=== PATIENT | male | born 1980 | race Caucasian/White ===

== ENCOUNTER 2018-01-06 11:04 | Emergency (ER) | payer MEDICAID ==
[2018-01-06] MEDS ORDERED: Tetracaine 0.5% Ophth Soln 15 mL Soln EACH EYE ONE (11:22)
[2018-01-06] MEDS ORDERED: TETRACAINE HCL 0.5% OPHTH SOLN 4ML BOTTLE ONE (11:31)
[2018-01-06] MEDS ORDERED: Gentamicin Ophth 0.3% Oint 3.5gm Tube ONE (11:39)
--- NOTE | 2018-01-06 12:33 | ED Physician Chart ---
ED Chief Complaint/HPI - Patient Information Date Seen:: 01/06/18 Time Seen:: 11:26 Chief Complaint:: LEFT EYE PAIN History of Present Illness:: THIS IS A 37 YO MALE WHO STATES THAT HE GOT SOMETHING IN HIS LEFT EYE AND DEVELOPED PHOTOPHOBIA. HE STATES THAT HE WAS SEEN AT [facility] YESTERDAY WITH SOME TREATMENT. HE IS HERE BECAUSE THE PAIN PERSIST. HE DENIES LOST OF VISUAL ACUITY. Allergies:: Allergies Allergy/AdvReac Type Severity Reaction Status Date / Time No Known Allergies Allergy Verified 01/06/18 11:15 Vitals:: Vital Signs - 8 hr 01/06/18 01/06/18 11:15 11:50 Temp 98.2 F 98.2 F HR 104 75 RR 18 15 BP 130/78 125/75 O2 Sat % 95 Historian:: Patient Review:: Nurse's Note Reviewed ED Review of Systems - Review of Systems General/Constitutional: No fever, No chills, No weight loss, No weakness, No diaphoresis, No edema, No loss of appetite Skin: No skin lesions, No rash, No bruising Head: No headache, No light-headedness Eyes: No loss of vision, Pain, No diplopia ENT: No earache, No nasal drainage, No sore throat, No tinnitus Neck: No neck pain, No swelling, No thyromegaly, No stiffness, No mass noted Cardio Vascular: No chest pain, No palpitations, No PND, No orthopnea, No edema Pulmonary: No SOB, No cough, No sputum, No wheezing GI: No nausea, No vomiting, No diarrhea, No pain, No melena, No hematochezia, No constipation, No hematemesis G/U: No dysuria, No frequency, No hematuria Musculoskeletal: No bone or joint pain, No back pain, No muscle pain Endocrine: No polyuria, No polydipsia Psychiatric: No prior psych history, No depression, No anxiety, No suicidal ideation Hematopoietic: No bruising, No lymphadenopathy Allergic/Immuno: No urticaria, No angioedema Neurological: No syncope, No focal symptoms, No weakness, No paresthesia, No headache, No seizure, No dizziness, No confusion, No vertigo ED Past Medical History - Past Medical History Obtainable: Yes Past Medical History: HTN, Asthma/COPD, Other (BIPOLAR) Family History: None Social History: Non Smoker, No Alcohol, No Drug Use Surgical History: None Psychiatricy History: Schizophrenia, Bipolar Medication: Reviewed Family Medical History - Family Member Mother History Unknown: Yes Other Medical History: Adopted ED Physical Exam - Physical Examination General/Constitutional: Awake, Well-developed, well-nourished, Alert, No distress, GCS 15, Non-toxic appearing, Ambulatory Head: Atraumatic Eyes: Lids, conjuctiva normal (LEFT CONJUNCTIVA IS RED AND SWOLLEN AND NO FB WAS SEEN. ACUITY WAS NORMAL.), PERRL, EOMI Skin: Nl inspection, No rash, No skin lesions, No ecchymosis, Well hydrated, No lymphadenopathy ENMT: External ears, nose nl, Nasal exam nl, Lips, teeth, gums nl Neck: Nontender, Full ROM w/o pain, No JVD, No nuchal rigidity, No bruit, No mass, No stridor Respiratory: Nl effort/Exclusion, Clear to Auscultation, No Wheeze/Rhonchi/Rales Cardio Vascular: RRR, No murmur, gallop, rubs, NL S1 S2 GI: No tenderness/rebounding/guarding, No organomegaly, No hernia, Normal BS's, Nondistended, No mass/bruits, No McBurney tenderness : No CVA tenderness Extremities: No tenderness or effusion, Full ROM, normal strength in all extremities, No edema, Normal digits & nails Neuro/Psych: Alert/oriented, DTR's symmetric, Normal sensory exam, Normal motor strength, Judgement/insight normal, Mood normal, Normal gait, No focal deficits Misc: Normal back, No paraspinal tenderness ED Assessment - Assessment General Assessment: CORNEAL ABRASION ED Septic Shock - . Is Septic Shock (SBP<90, OR Lactate>4 mmol\L) present?: No - <6hrs of presentation: Vital Signs: Vital Signs - 8 hr 01/06/18 01/06/18 11:15 11:50 Temp 98.2 F 98.2 F HR 104 75 RR 18 15 BP 130/78 125/75 O2 Sat % 95 ED Reassessment (Disposition) - Reassessment Reassessment Condition:: Improved - Diagnosis Diagnosis:: LEFT CORNEAL ABRASION - Aftercare/Follow up Instructions Aftercare/Follow-Up Instructions:: Counseled pt regarding lab results/diagnosis & need follow up, Refer to Discharge Instructions, Counseled pt & family regarding lab results/diagnosis & need follow up Notes:: TO SEE AN EYE DOCTOR IN THE AM. Medication Prescribed:: GARAMYCIN OINTMENT - Patient Disposition Discharge/Transfer:: Home Condition at Disposition:: Improved
[2018-01-06] MEDS ORDERED: Gentamicin Ophth 0.3% Oint 3.5gm Tube LEFT EYE SCH (14:00)
== END 2018-01-06 12:59 | disposition home or self-care (01) ==
LOC: ER 11:04
DX: S05.02XA Injury of conjunctiva and corneal abrasion without foreign body, left eye, initial encounter (principal); I10 Essential (primary) hypertension; J44.9 Chronic obstructive pulmonary disease, unspecified; F20.9 Schizophrenia, unspecified; X58.XXXA Exposure to other specified factors, initial encounter; Y93.89 Activity, other specified; Y92.89 Other specified places as the place of occurrence of the external cause; Y99.8 Other external cause status
CPT/HCPCS: Z7502

== ENCOUNTER 2018-02-09 23:57 | Inpatient (IN) | payer MEDICAID ==
--- NOTE | 2018-02-10 01:02 | ED Physician Chart ---
ED Chief Complaint/HPI - Patient Information Date Seen:: 02/10/18 Time Seen:: 00:56 Chief Complaint:: bilateral hand lesions History of Present Illness:: 37 yr old male homeless shoots up meth with bilateral dorsal hand lesions with reddness and swelling Allergies:: Allergies Allergy/AdvReac Type Severity Reaction Status Date / Time No Known Allergies Allergy Verified 02/10/18 00:19 Vitals:: Vital Signs - 8 hr 02/10/18 00:19 Temp 98.4 F HR 100 RR 18 BP 148/94 O2 Sat % 100 ED Review of Systems - Review of Systems General/Constitutional: Chills Skin: Skin lesions (reddness swelling on back of the hands) Head: Headache Eyes: No loss of vision ENT: No earache Neck: No neck pain Cardio Vascular: No chest pain GI: No vomiting, No diarrhea G/U: No dysuria Endocrine: No polyuria Psychiatric: No depression, No anxiety Hematopoietic: No bruising Neurological: No syncope, No focal symptoms ED Past Medical History - Past Medical History Past Medical History: No significant medical hx, Other (drug abuse meth and shooting up meth) Family Medical History - Family Member Mother History Unknown: Yes ED Physical Exam - Physical Examination General/Constitutional: Well-developed, well-nourished Head: Atraumatic Eyes: Lids, conjuctiva normal Other Skin comments:: skin lesions on back of the hands more symmerical Neck: Nontender Respiratory: Nl effort/Exclusion Cardio Vascular: No murmur, gallop, rubs GI: No tenderness/rebounding/guarding Extremities: Full ROM Neuro/Psych: Alert/oriented Misc: Normal back ED Septic Shock - . Is Septic Shock (SBP<90, OR Lactate>4 mmol\L) present?: No - <6hrs of presentation: Vital Signs: Vital Signs - 8 hr 02/10/18 00:19 Temp 98.4 F HR 100 RR 18 BP 148/94 O2 Sat % 100 ED Reassessment (Disposition) - Reassessment Reassessment Condition:: Unchanged - Diagnosis Diagnosis:: skin lesions on back of the hands symmetrical and ivda - Patient Disposition Discharge/Transfer:: Acute Care w/in this hosp Admitted to:: Med/Surg Condition at Disposition:: Stable
[2018-02-10 01:24] LABS: % EOSINOPHILS 2.4 % (0.0-5.0); % LYMPHOCYTES 20.3 % (20.0-50.0); % MONOCYTES 7.9 % (2.0-10.0); % NEUTROPHILS 69.4 % (40.0-80.0); EOSINOPHILE ABSOLUTE 0.3 Th/cmm (0.1-0.4); HEMATOCRIT 40.4 % (41.0-60); HEMOGLOBIN 13.7 gm/dL (12-16); LYMPHOCYTE ABSOLUTE 2.2 Th/cmm (1.5-3.0); MEAN CELL VOLUME 89.5 fl (80-99); MEAN CORPUSCULAR HEMOGLOBIN 30.3 pg (26.0-30.0); MEAN CORPUSCULAR HGB CONC 33.8 pg (28.0-36.0); MEAN PLATELET VOLUME 7.8 fl; MONOCYTE ABSOLUTE 0.8 Th/cmm (0.3-1.0); NEUTROPHILE ABSOLUTE 7.3 Th/cmm (1.8-8.0); PLATELET COUNT 311 Th/cmm (150-400); RED BLOOD COUNT 4.51 Mil/cmm (4.30-5.70); RED CELL DISTRIBUTION WIDTH 12.4 % (11.5-20.0); WHITE BLOOD COUNT 10.6 Th/cmm (4.8-10.8)
[2018-02-10] MEDS ORDERED: cefTRIAXone 2 GM in Sodium Chloride 0.9% 100 ML IV SCH (01:30)
[2018-02-10 01:34] LABS: ALB/GLOB RATIO 1.3 (1.0-1.8); ALBUMIN 4.2 gm/dL (4.2-5.5); ALKALINE PHOSPHATASE 105 U/L (34-104); ANION GAP 13.5 (7.0-16.0); BILIRUBIN,TOTAL 0.3 mg/dL (0.3-1.0); BUN - UREA NITROGEN 15 mg/dL (7-25); CALCIUM SERUM 9.8 mg/dL (8.6-10.3); CHLORIDE 99 mEq/L (98-107); CREATININE - SERUM 0.9 mg/dL (0.7-1.3); GFR AFRICAN-AMERICAN > 60.0 ml/min (>90); GFR NON AFRICAN-AMERICAN > 60.0 ml/min; GLUCOSE 90 mg/dL (70-105); POTASSIUM SERUM 3.5 mEq/L (3.5-5.1); SGOT 13 U/L (13-39); SGPT/ALT 10 U/L (7-52); SODIUM SERUM 137 mEq/L (136-145); TOTAL PROTEIN,SERUM 7.5 gm/dL (6.0-8.3)
[2018-02-10 07:21] LABS: URINE SOURCE CLEAN C
[2018-02-10 07:25] LABS: URINE BILIRUBIN NEGATIVE (NEGATIVE); URINE BLOOD MODERATE (NEGATIVE); URINE GLUCOSE (UA) NEGATIVE (NEGATIVE); URINE KETONE NEGATIVE (NEGATIVE); URINE LEUKOCYTE ESTERASE NEGATIVE (NEGATIVE); URINE MICROSCOPIC INDICATED? YES; URINE NITRATE NEGATIVE (NEGATIVE); URINE PROTEIN NEGATIVE (NEGATIVE); URINE UROBILINOGEN 0.2 E.U./dL (0.2 - 1.0)
[2018-02-10 07:29] LABS: URINE CLARITY CLEAR (CLEAR); URINE COLOR PALE YELLOW
[2018-02-10 07:36] LABS: URINE BACTERIA FEW /hpf (NONE SEEN); URINE EPITHELIAL CELLS RARE /lpf (FEW); URINE RBC 25-50 /hpf (0-5); URINE WBC 0-2 /hpf (0-5)
[2018-02-10] MEDS ORDERED: Vancomycin HCl 1.5 GM in Sodium Chloride 0.9% 500 ML IV ONE (11:00)
[2018-02-10] MEDS: cefTRIAXone 1 GM in Sodium Chloride 0.9% 100 ML IV SCH (13:44)
--- NOTE | 2018-02-10 15:43 | History & Physical ---
ADMIT DATE: 02/10/2018 CHIEF COMPLAINT: Bilateral hand lesions, swelling, and redness. HISTORY OF PRESENT ILLNESS: This is a 37-year-old male who is homeless and who is currently using IV drugs (meth) presented to the ER yesterday with a 3-day history of worsening dorsal left hand lesions with the left hand having swelling and being more painful. The patient apparently tried to amy at himself and got some bloody like material. Given the fact that he had no improvement and had an episode of fevers, he decided to come into the ER. On further questioning, he also states that he has had some left abdominal pain for the last few days as well as the left arm pain and just today, he reported blood in his urine. He denies any similar previous episodes. The patient reports that he does not use the IV drugs at the site of the infection and does not share needles. PAST MEDICAL HISTORY: No major medical history. PAST SURGICAL HISTORY: Tonsillectomy, many years ago. SOCIAL HISTORY: He admits to previous ETOH, but he has not drunk in years. He does smoke about a pack a week and currently is using meth via IV. FAMILY HISTORY: Noncontributory to this admission. ALLERGIES: NKDA. OUTPATIENT MEDICATIONS: None. REVIEW OF SYSTEMS: CONSTITUTIONAL: No recent weight loss. He does report 1 episode of fevers couple days ago. HEAD AND NECK: Denies any upper respiratory infection symptomatology. No neck rigidity. CARDIAC: No chest pain or palpitations. PULMONARY: Denies any cough or phlegm production. GASTROINTESTINAL: Currently denies any GI symptomatology. Besides the left-sided abdominal pain, he denies any other symptomatology. GENITOURINARY: He denies any dysuria, but reported one episode of hematuria earlier today. MUSCULOSKELETAL: Bilateral dorsal hand pain and left shoulder and hand pain. NEUROLOGIC: No changes in vision, no headaches or blurry vision. PHYSICAL EXAMINATION: VITAL SIGNS: Temperature 97.7, afebrile, pulse 78, respirations 18, BP 136/83. GENERAL: Well-developed, mildly disheveled male, not in acute distress, speaking in full sentences. Awake, alert and oriented x 3. HEAD AND NECK: Normocephalic, atraumatic. Pupils reactive to light. Extraocular movements are intact. Oropharynx moist and clear. CARDIOVASCULAR: Regular rate and rhythm without any murmurs. LUNGS: Clear to auscultation bilaterally. ABDOMEN: Soft, supple. There is mild tenderness to palpation on the left lower quadrant and left upper quadrant, but no organomegaly noted. There is normoactive bowel sounds. EXTREMITIES: On lower extremity, there is no pedal edema. On his upper extremities, on the dorsal side, there is a large area of induration around the third knuckle area and on the right hand, there is a small ulcer formation with no induration. LABORATORY DATA: CBC was essentially within normal limits. ESR 33. Chem-20 was essentially within normal limits except for alk phos slightly elevated at 105. CRP 2.4. UA shows moderate blood, 25-50 rbc's. DIAGNOSTICS: None. IMPRESSION AND PLAN: 1. Bilateral hand cellulitis with possible abscess on the left hand and an ulcer formation on the right hand. 2. History of IVDA, rule out sepsis. 3. Elevated CRP and ESR, likely secondary to #1. 4. Left-sided abdominal pain. 5. Nicotine dependence. PLAN: The patient has been admitted to the medical/surgical floor where he has been placed on Rocephin and vancomycin as well as Toradol for pain. He has been pancultured and given his abdominal pain, I will ask for an abdominal ultrasound. A surgical consult will be asked for as well for possible I and D of the left abscess. JOB# [id number]
[2018-02-10 15:48] LABS: INR 0.93 (0.5-1.4); PROTHROMBIN TIME (TEST) 9.7 SECONDS (9.5-11.5)
[2018-02-10] MEDS ORDERED: Vancomycin HCl 1.5 GM in Sodium Chloride 0.9% 500 ML IV SCH (18:00)
[2018-02-11] MEDS: Vancomycin HCl 1.5 GM in Sodium Chloride 0.9% 500 ML IV SCH ×3 (00:10→17:23)
[2018-02-11 05:53] LABS: % BASOPHILS 1.2 % (0.0-2.0); % EOSINOPHILS 3.5 % (0.0-5.0); % MONOCYTES 9.2 % (2.0-10.0); % NEUTROPHILS 57.1 % (40.0-80.0); BASOPHILE ABSOLUTE 0.1 Th/cumm (0-0.2); EOSINOPHILE ABSOLUTE 0.3 Th/cmm (0.1-0.4); HEMATOCRIT 41.5 % (41.0-60); HEMOGLOBIN 13.4 gm/dL (12-16); LYMPHOCYTE ABSOLUTE 2.2 Th/cmm (1.5-3.0); MEAN CELL VOLUME 90.1 fl (80-99); MEAN CORPUSCULAR HGB CONC 32.2 pg (28.0-36.0); MONOCYTE ABSOLUTE 0.7 Th/cmm (0.3-1.0); NEUTROPHILE ABSOLUTE 4.2 Th/cmm (1.8-8.0); PLATELET COUNT 299 Th/cmm (150-400); RED CELL DISTRIBUTION WIDTH 12.5 % (11.5-20.0); WHITE BLOOD COUNT 7.5 Th/cmm (4.8-10.8)
--- NOTE | 2018-02-11 09:40 | Diagnostic Imaging Report ---
Exam: Ultrasound summation abdomen. HISTORY: Left-sided pain. Findings: Real-time ultrasound examination of the abdomen performed multiple planes. The study demonstrates normal just liver parenchyma Gallbladder free of calculi. There is evidence of small polyp versus inspissated bile. Common bile duct measures 4 mm. Pancreas poorly seen. There is no evidence of obstructive uropathy or nephrolithiasis. The spleen is intact. No free fluid is seen. IMPRESSION: Question of a small gallbladder polyp.
[2018-02-11] MEDS: cefTRIAXone 1 GM in Sodium Chloride 0.9% 100 ML IV SCH (11:58)
--- NOTE | 2018-02-11 17:07 | Operative Report ---
DATE OF SURGERY: 02/11/2018 PREOPERATIVE DIAGNOSIS: Abscess left hand. POSTOPERATIVE DIAGNOSIS: Abscess left hand. OPERATION: 1. Incision and drainage of abscess. 2. Culture and sensitivity. Informed consent discussed with the patient regarding need for I and D of abscess in the dorsum of the left hand. DESCRIPTION OF PROCEDURE: The dorsum of the hand was prepped with Betadine and draped. 1% lidocaine was used into the area. An incision was then made with a knife and thick purulent material was cultured. The abscess cavity was squeezed to allow for drainage of the prone material. Sterile dressing was placed over this. The patient is on IV antibiotics now and will continue to need oral antibiotics post discharge. [facility]# [id number]
--- NOTE | 2018-02-11 18:16 | Consultation ---
DATE OF CONSULTATION: 02/11/2018 SURGICAL CONSULTATION REFERRING PHYSICIAN: Dr. Noe Robles. REASON FOR CONSULTATION: Abscess, left dorsum of the hand. Thank you for referring this patient to me. HISTORY OF PRESENT ILLNESS: This is a 37-year-old homeless male who came in because a 5-day history of swelling and increasing pain with abscess in the left hand dorsal aspect. He has similar abscess in the right hand, but this has drained spontaneously. PAST MEDICAL HISTORY: Apparently, has history of methamphetamine abuse, but he denies this recently. Otherwise, in addition to that, he also smokes cigarettes. LABORATORY STUDIES: Show WBC to be normal. ESR is elevated to 33. There is some blood in the urine. DIAGNOSTIC DATA: The ultrasound of the abdomen showed question of a small gallbladder polyp. No stones. Otherwise, liver function tests are normal. He claims he has some problem with indigestion at times. PHYSICAL EXAMINATION: Now, there is no tenderness in right upper quadrant, so this is an incidental finding of a polyp. There is an abscess in the dorsum of the left hand, which is markedly distended and requires I and D. The abscess in the right hand has drained. Medication now that he takes include vancomycin. He wants to go home and will need an oral antibiotic and local wound care. [facility]# [id number]
[2018-02-11] MEDS ORDERED: Morphine Sulfate 2 mg/mL 1mL Syr IV PRN (21:23)
[2018-02-12] MEDS: Vancomycin HCl 1.5 GM in Sodium Chloride 0.9% 500 ML IV SCH (00:26)
[2018-02-12 05:33] LABS: % BASOPHILS 0.3 % (0.0-2.0); % EOSINOPHILS 3.3 % (0.0-5.0); % LYMPHOCYTES 23.3 % (20.0-50.0); % MONOCYTES 8.2 % (2.0-10.0); % NEUTROPHILS 64.9 % (40.0-80.0); EOSINOPHILE ABSOLUTE 0.3 Th/cmm (0.1-0.4); HEMATOCRIT 38.6 % (41.0-60); MEAN CELL VOLUME 88.9 fl (80-99); MEAN CORPUSCULAR HGB CONC 33.7 pg (28.0-36.0); MEAN PLATELET VOLUME 8.5 fl; MONOCYTE ABSOLUTE 0.7 Th/cmm (0.3-1.0); NEUTROPHILE ABSOLUTE 5.6 Th/cmm (1.8-8.0); PLATELET COUNT 260 Th/cmm (150-400); RED BLOOD COUNT 4.34 Mil/cmm (4.30-5.70); RED CELL DISTRIBUTION WIDTH 12.5 % (11.5-20.0); WHITE BLOOD COUNT 8.6 Th/cmm (4.8-10.8)
--- NOTE | 2018-02-12 17:28 | Discharge Summary ---
DATE OF DISCHARGE: 02/12/2018 ADMITTING DIAGNOSES: 1. Bilateral left hand cellulitis. 2. Left hand abscess formation on the dorsum. 3. Nonspecific abdominal left-sided pain and possible hematuria. SECONDARY DIAGNOSES: 1. History of IVDA. Elevated CRP and ESR. 2. History of multiple substance abuse. 3. Nicotine dependence. DISCHARGE DIAGNOSES: 1. Bilateral hand cellulitis -- clinically improved. 2. Left hand abscess formation -- status post incision and drainage. 3. Nonspecific abdominal pain -- improved. 4. Hematuria -- resolved. CONSULTANTS: Dr. Harrington, General Surgery. MAJOR PROCEDURES: He underwent an incision and drainage on 02/11/2018 with no complications. The patient also had abdominal ultrasound on the showing a questionable small gallbladder polyp. BRIEF HOSPITAL COURSE: A 37-year-old gentleman who is homeless and is currently using IV drugs (Meth) presented to the ED with a 3-day history of worsening dorsal left hand lesions or bilateral left hand lesions with growth on the left hand dorsum, which is painful. The patient apparently tried to amy at himself, just getting a small amount of bloody like material. He had an episode of fevers prior to coming into the ED and was admitted for IV antibiotics. He was placed on IV Rocephin, IV vancomycin and eventually underwent the above-mentioned procedure. He also has some nonspecific complaints including left-sided abdominal pain and arm pain as well as possible hematuria, which he could not be 100% sure, but nevertheless he was cultured and underwent abdominal ultrasound showing no major findings. After the I and D, his symptoms improved and since admission, his vital signs have remained stable. DISCHARGE MEDICATIONS: Clindamycin 300 mg t.i.d. x 10 days, ibuprofen 800 mg t.i.d. with meals x 10 days. DISPOSITION: The patient was sent home to self-care. The patient was seen by a licensed clinical social worker to instruct him on finding place to live and have the proper medical followup that he needs. JOB# [id number]
== END 2018-02-12 09:39 | disposition home or self-care (01) | DRG 383 ==
LOC: ER 23:57 → MSI 02-10 09:58
PROVIDERS: ADMIT Internal Medicine; ATTEND Internal Medicine
PROC: 0H9GXZZ Drainage of Left Hand Skin, External Approach (ICD-10-PCS; principal; 2018-02-11)
DX: L02.512 Cutaneous abscess of left hand (principal); F15.10 Other stimulant abuse, uncomplicated; L02.511 Cutaneous abscess of right hand; L03.114 Cellulitis of left upper limb; F17.210 Nicotine dependence, cigarettes, uncomplicated; R10.9 Unspecified abdominal pain; L03.113 Cellulitis of right upper limb; R31.9 Hematuria, unspecified; K82.4 Cholesterolosis of gallbladder; Z59.0 Homelessness
CPT/HCPCS: 36415-UA; 76700-TC; 80053-TC; 80202-TC; 81001-TC; 85025-TC; 85610-TC; 85652-TC; 86141-TC; 87070-90; 87075-90; 87086-90; 87205-90; 96375; J0696; J1885; J2001; J2270; J3370; J7040; Z7610

== ENCOUNTER 2018-08-06 23:13 | Emergency (ER) | payer MEDICAID ==
--- NOTE | 2018-08-06 23:36 | ED Physician Chart ---
ED Chief Complaint/HPI - Patient Information Date Seen:: 08/06/18 Time Seen:: 23:25 Chief Complaint:: Abdominal pain History of Present Illness:: Brought in by ambulance because of abdominal pain since about 3 pm today. Pain is characterized as constant, crampy migratory and diffuse. Pain can be worsened with bodily movements. No fever. Pt had transient nausea. No vomiting. Last BM was about 2 days ago that was normal in color/consistency. No hematochezia or melena. No gross hematuria, dysuria, urinary frequency or urgency. Pt is a poor history provider. He does not give consistent history. Allergies:: Allergies Allergy/AdvReac Type Severity Reaction Status Date / Time No Known Allergies Allergy Verified 02/10/18 00:19 Vitals:: see Nurse Note. Historian:: Patient Family MD/PCP:: Dr. Mott. LMP:: N/A Review:: Nurse's Note Reviewed ED Review of Systems - Review of Systems General/Constitutional: No fever, No chills, No weight loss, No weakness, No loss of appetite Skin: No rash, No bruising Head: No headache, No light-headedness Eyes: No loss of vision, No pain ENT: No earache, No nasal drainage, No sore throat Neck: No neck pain, No stiffness Cardio Vascular: No chest pain, No palpitations Pulmonary: No SOB, No cough, No wheezing GI: Nausea, No vomiting, No diarrhea, Pain, No melena, No hematochezia, No hematemesis G/U: No dysuria, No frequency, No hematuria Musculoskeletal: No bone or joint pain Endocrine: No polyuria, No polydipsia Psychiatric: Prior psych history, No depression, No suicidal ideation, No homicidal ideation Hematopoietic: No bruising, No lymphadenopathy Neurological: No syncope, No focal symptoms, Weakness, No paresthesia, No headache, No dizziness, No confusion ED Past Medical History - Past Medical History Past Medical History: No significant medical hx Family History: Other (Pt is adopted and does not know his FHx.) Social History: Smoker (Pt has been informed about health risks associated with chronic tobacco use and has been advised to stop. Pt has been encouraged to enroll in a smoking cessation program. Pt acknowledges understanding.), No Alcohol, Illicit Drug Use (with metamphetamine. Pt has been informed about health risks associated with illicit drug use and has been advised to stop. Pt has been encouraged to enroll in a drug detox. program. Pt acknowledges understanding.), Single Employment:: works in film production. Surgical History: other (tonsillectomy in 2017.) Psychiatricy History: Bipolar Medication: Reviewed Family Medical History - Family Member Mother History Unknown: Yes Ethnicity: Non- Living Status: Still Living Hx Family Cancer: No Hx Family Coronary Artery Disease: No Hx Family Congestive Heart Failure: No Hx Family Hypertension: No Hx Family Stroke: No Hx Family Diabetes: No Hx Family Seizures: No Hx Family Dementia: No Hx Family AIDS: No Hx Family HIV: No Hx Family COPD: No Hx Family Hepatitis: No Hx Family Psychiatric Problems: No Hx Family Tuberculosis: No ED Physical Exam - Physical Examination General/Constitutional: Awake, Well-developed, well-nourished (male), Alert, No distress, Non-toxic appearing Other Gen/Cons comments:: Breathes comfortably, speaks clearly, and interacts appropriately. Head: Atraumatic Eyes: Lids, conjuctiva normal, PERRL, EOMI Other Eyes comments:: anicteric sclera. Skin: Nl inspection, Well hydrated, No lymphadenopathy ENMT: External ears, nose nl, Nasal exam nl, Oropharynx nl Neck: Nontender, Full ROM w/o pain, No JVD, No nuchal rigidity, No mass Respiratory: Nl effort/Exclusion, Clear to Auscultation, No Wheeze/Rhonchi/Rales Cardio Vascular: RRR, No murmur, gallop, rubs GI: No organomegaly, No hernia, Normal BS's, Nondistended, No mass/bruits, No McBurney tenderness Other GI comments:: Soft. Vague diffuse pain with palpation. No R/G. Negative Gibson's, Fleming-Mart' s, and Erik's signs. : No CVA tenderness Extremities: No tenderness or effusion, Full ROM, normal strength in all extremities, No edema Neuro/Psych: Alert/oriented (orient ed x 3), No focal deficits Misc: Normal back, No paraspinal tenderness ED Labs/Radiology/EKG Results - Lab Results Results: Laboratory Results - last 24 hr 08/06/18 08/06/18 08/06/18 23:59 23:59 23:59 WBC 9.8 RBC 4.79 Hgb 14.2 Hct 42.6 MCV 88.9 MCH 29.7 MCHC Differential 33.4 RDW 13.1 Plt Count 217 MPV 7.9 Neutrophils % 81.8 H Lymphocytes % 9.4 L Monocytes % 5.9 Eosinophils % 2.8 Basophils % 0.1 PT 10.3 INR 0.99 PTT (Actin FS) 29.9 Sodium 134 L Potassium 3.6 Chloride 101 Carbon Dioxide 25.4 Anion Gap 11.2 BUN 12 Creatinine 1.0 Est GFR ( Amer) > 60.0 Est GFR (Non-Af Amer) > 60.0 BUN/Creatinine Ratio 12.0 Glucose 132 H Calcium 8.9 Total Bilirubin 0.4 AST 12 L ALT 9 Alkaline Phosphatase 78 Total Protein 6.4 Albumin 4.1 L Globulin 2.3 Albumin/Globulin Ratio 1.8 Amylase 38 Lipase 5 L Laboratory Last Values WBC 9.8 Th/cmm (4.8-10.8) 08/06/18 23:59 RBC 4.79 Mil/cmm (4.30-5.70) 08/06/18 23:59 Hgb 14.2 gm/dL (12-16) 08/06/18 23:59 Hct 42.6 % (41.0-60) 08/06/18 23:59 MCV 88.9 fl (80-99) 08/06/18 23:59 MCH 29.7 pg (26.0-30.0) 08/06/18 23:59 MCHC Differential 33.4 pg (28.0-36.0) 08/06/18 23:59 RDW 13.1 % (11.5-20.0) 08/06/18 23:59 Plt Count 217 Th/cmm (150-400) 08/06/18 23:59 MPV 7.9 fl 08/06/18 23:59 Neutrophils % 81.8 % (40.0-80.0) H 08/06/18 23:59 Lymphocytes % 9.4 % (20.0-50.0) L 08/06/18 23:59 Monocytes % 5.9 % (2.0-10.0) 08/06/18 23:59 Eosinophils % 2.8 % (0.0-5.0) 08/06/18 23:59 Basophils % 0.1 % (0.0-2.0) 08/06/18 23:59 PT 10.3 SECONDS (9.5-11.5) 08/06/18 23:59 INR 0.99 (0.5-1.4) 08/06/18 23:59 PTT (Actin FS) 29.9 SECONDS (26.0-38.0) 08/06/18 23:59 Sodium 134 mEq/L (136-145) L 08/06/18 23:59 Potassium 3.6 mEq/L (3.5-5.1) 08/06/18 23:59 Chloride 101 mEq/L (98-107) 08/06/18 23:59 Carbon Dioxide 25.4 mEq/L (21.0-31.0) 08/06/18 23:59 Anion Gap 11.2 (7.0-16.0) 08/06/18 23:59 BUN 12 mg/dL (7-25) 08/06/18 23:59 Creatinine 1.0 mg/dL (0.7-1.3) 08/06/18 23:59 Est GFR ( Amer) > 60.0 ml/min (>90) 08/06/18 23:59 Est GFR (Non-Af Amer) > 60.0 ml/min 08/06/18 23:59 BUN/Creatinine Ratio 12.0 08/06/18 23:59 Glucose 132 mg/dL (70-105) H 08/06/18 23:59 Calcium 8.9 mg/dL (8.6-10.3) 08/06/18 23:59 Total Bilirubin 0.4 mg/dL (0.3-1.0) 08/06/18 23:59 AST 12 U/L (13-39) L 08/06/18 23:59 ALT 9 U/L (7-52) 08/06/18 23:59 Alkaline Phosphatase 78 U/L (34-104) 08/06/18 23:59 Total Protein 6.4 gm/dL (6.0-8.3) 08/06/18 23:59 Albumin 4.1 gm/dL (4.2-5.5) L 08/06/18 23:59 Globulin 2.3 gm/dL 08/06/18 23:59 Albumin/Globulin Ratio 1.8 (1.0-1.8) 08/06/18 23:59 Amylase 38 U/L (29-103) 08/06/18 23:59 Lipase 5 U/L (11-82) L 08/06/18 23:59 Urine Source CLEAN C 08/07/18 03:11 Urine Color YELLOW 08/07/18 03:11 Urine Clarity CLEAR (CLEAR) 08/07/18 03:11 Urine pH 7.0 (4.6 - 8.0) 08/07/18 03:11 Ur Specific Reading 1.020 (1.005-1.030) 08/07/18 03:11 Urine Protein TRACE mg/dL (NEGATIVE) 08/07/18 03:11 Urine Glucose (UA) NEGATIVE mg/dL (NEGATIVE) 08/07/18 03:11 Urine Ketones NEGATIVE mg/dL (NEGATIVE) 08/07/18 03:11 Urine Blood NEGATIVE (NEGATIVE) 08/07/18 03:11 Urine Nitrate NEGATIVE (NEGATIVE) 08/07/18 03:11 Urine Bilirubin NEGATIVE (NEGATIVE) 08/07/18 03:11 Urine Urobilinogen 2.0 E.U./dL (0.2 - 1.0) 08/07/18 03:11 Ur Leukocyte Esterase NEGATIVE (NEGATIVE) 08/07/18 03:11 Urine RBC 0-2 /hpf (0-5) H 08/07/18 03:11 Urine WBC 0-2 /hpf (0-5) 08/07/18 03:11 Ur Epithelial Cells RARE /lpf (FEW) 08/07/18 03:11 Urine Bacteria FEW /hpf (NONE SEEN) 08/07/18 03:11 Urine Opiates Screen NEGATIVE (NEGATIVE) 08/07/18 03:11 Urine Methadone Screen NEGATIVE (NEGATIVE) 08/07/18 03:11 Ur Barbiturates Screen NEGATIVE (NEGATIVE) 08/07/18 03:11 Ur Tricyclics Screen NEGATIVE (NEGATIVE) 08/07/18 03:11 Ur Phencyclidine Scrn NEGATIVE (NEGATIVE) 08/07/18 03:11 Amphetamines Screen POSITIVE (NEGATIVE) H 08/07/18 03:11 U Methamphetamines Scrn POSITIVE (NEGATIVE) H 08/07/18 03:11 U Benzodiazepines Scrn NEGATIVE (NEGATIVE) 08/07/18 03:11 U Cocaine Metab Screen NEGATIVE (NEGATIVE) 08/07/18 03:11 U Cannabinoids Screen NEGATIVE (NEGATIVE) 08/07/18 03:11 - Radiology Results Results: CT of abdomen/pelvis: Multiple prominent small bowel loops, majority of which measure less than 2.5 cm in width. These contain air and fluid without wall thickening. Consider gastroenteritis and less likely developing small obstruction, but would correlate clinically to confirm. No appendicitis, colitis , diverticulitis, obstructive uropathy, free air or free fluid. Pancreas and gallbladder are unremarkable. No other acute disease. Official report per Dr. Paul Hitchcock, radiologist. ED Septic Shock - . Is Septic Shock (SBP<90, OR Lactate>4 mmol\\L) present?: No ED Reassessment (Disposition) - Reassessment Reassessment:: 0250 Pt has been repeatedly evaluated. Pt remains stable and overall feels better. CT report just became available. Available lab and CT findings have been reviewed with pt. Remaining lab results are still pending. 0612 Pt slept through the morning uneventfully.Pt tolerates oral fluid well without N/V/D. Pt currently denies any abdominal pain. Pt was able to get up from the bed on his own and ambulates without assistance without difficulty. Remaining lab findings have been reviewed with pt. Pt again has been advised to stop substance abuse. Pt has been advised to follow with his PCP and has been encouraged to enroll in a drug detox. program. 0630 Pt is alert and oriented x 3. Pt breathes comfortably and speaks clearly. Pt now states that he has severe low back pain that he would not be able to walk 7 miles to where he wants to be. I reexamine pt. Back: No definite tenderness to palpation. No erythema, gross deformity, swelling, ecchymosis, or open wound. No detectable motor/sensory/vascular deficit. In the presence of my nurse Divine, I offer pt additional pain control, X-ray, assistance in transportation, and social work evaluation, clothes, etc. Pt declines further pain control and X-ray. Pt becomes belligerent and hostile. Pt has made contradictory statements and claims that "nothing has been done" for him at this ER. Pt remains belligerent and increasingly hostile. Security is called. 0640 [employer] officers have been here as well and discuss with pt. 0715 Pt left with [employer] prior to my delivery of Aftercare Instructions. Reassessment Condition:: Improved - Diagnosis Diagnosis:: Abdominal pain related to early viral gastroenteritis. Resolved and stable. Mild hyperglycemia. Amphetamine abuse - Aftercare/Follow up Instructions Aftercare/Follow-Up Instructions:: Counseled pt regarding lab results/diagnosis & need follow up Medication Prescribed:: None - Patient Disposition Discharge/Transfer:: Pt left with [employer] officers. Time:: 07:15 Condition at Disposition:: Stable, Improved
[2018-08-07 00:19] LABS: % BASOPHILS 0.1 % (0.0-2.0); % EOSINOPHILS 2.8 % (0.0-5.0); % LYMPHOCYTES 9.4 % (20.0-50.0); % MONOCYTES 5.9 % (2.0-10.0); % NEUTROPHILS 81.8 % (40.0-80.0); EOSINOPHILE ABSOLUTE 0.3 Th/cmm (0.1-0.4); HEMATOCRIT 42.6 % (41.0-60); HEMOGLOBIN 14.2 gm/dL (12-16); LYMPHOCYTE ABSOLUTE 0.9 Th/cmm (1.5-3.0); MEAN CELL VOLUME 88.9 fl (80-99); MEAN CORPUSCULAR HEMOGLOBIN 29.7 pg (26.0-30.0); MEAN CORPUSCULAR HGB CONC 33.4 pg (28.0-36.0); MEAN PLATELET VOLUME 7.9 fl; MONOCYTE ABSOLUTE 0.6 Th/cmm (0.3-1.0); PLATELET COUNT 217 Th/cmm (150-400); RED BLOOD COUNT 4.79 Mil/cmm (4.30-5.70); RED CELL DISTRIBUTION WIDTH 13.1 % (11.5-20.0); WHITE BLOOD COUNT 9.8 Th/cmm (4.8-10.8)
[2018-08-07 00:28] LABS: INR 0.99 (0.5-1.4); PROTHROMBIN TIME (TEST) 10.3 SECONDS (9.5-11.5)
[2018-08-07 00:32] LABS: ALB/GLOB RATIO 1.8 (1.0-1.8); ALBUMIN 4.1 gm/dL (4.2-5.5); ALKALINE PHOSPHATASE 78 U/L (34-104); AMYLASE SERUM 38 U/L (29-103); ANION GAP 11.2 (7.0-16.0); BILIRUBIN,TOTAL 0.4 mg/dL (0.3-1.0); BUN - UREA NITROGEN 12 mg/dL (7-25); CALCIUM SERUM 8.9 mg/dL (8.6-10.3); CARBON DIOXIDE 25.4 mEq/L (21.0-31.0); CHLORIDE 101 mEq/L (98-107); GFR AFRICAN-AMERICAN > 60.0 ml/min (>90); GFR NON AFRICAN-AMERICAN > 60.0 ml/min; GLUCOSE 132 mg/dL (70-105); LIPASE 5 U/L (11-82); POTASSIUM SERUM 3.6 mEq/L (3.5-5.1); SGOT 12 U/L (13-39); SGPT/ALT 9 U/L (7-52); SODIUM SERUM 134 mEq/L (136-145); TOTAL PROTEIN,SERUM 6.4 gm/dL (6.0-8.3)
[2018-08-07] MEDS ORDERED: Sodium Chloride 0.9% 1,000 ML IV ONE (03:02)
[2018-08-07 03:19] LABS: URINE SOURCE CLEAN C
[2018-08-07 03:58] LABS: URINE BILIRUBIN NEGATIVE (NEGATIVE); URINE BLOOD NEGATIVE (NEGATIVE); URINE GLUCOSE (UA) NEGATIVE (NEGATIVE); URINE KETONE NEGATIVE (NEGATIVE); URINE LEUKOCYTE ESTERASE NEGATIVE (NEGATIVE); URINE MICROSCOPIC INDICATED? YES; URINE NITRATE NEGATIVE (NEGATIVE); URINE PROTEIN TRACE mg/dL (NEGATIVE)
[2018-08-07 04:08] LABS: URINE CLARITY CLEAR (CLEAR); URINE COLOR YELLOW
[2018-08-07 04:09] LABS: AMPHETAMINE URINE POSITIVE (NEGATIVE); BARBITURATES URINE NEGATIVE (NEGATIVE); COCAINE METABOLITE QUAL URINE NEGATIVE (NEGATIVE); PHENCYCLIDINE (PCP) URINE NEGATIVE (NEGATIVE); URINE BACTERIA FEW /hpf (NONE SEEN); URINE EPITHELIAL CELLS RARE /lpf (FEW); URINE RBC 0-2 /hpf (0-5); URINE WBC 0-2 /hpf (0-5)
[2018-08-07 04:10] LABS: BENZODIAZEPINES QUAL URINE NEGATIVE (NEGATIVE); CANNABINOID THC NEGATIVE (NEGATIVE); METHADONE URINE NEGATIVE (NEGATIVE); METHAMPHETAMINES QUAL URINE POSITIVE (NEGATIVE); OPIATES (MORPHINE) QUAL. URINE NEGATIVE (NEGATIVE); TRICYCLICS (TCA) QUAL. URINE NEGATIVE (NEGATIVE)
--- NOTE | 2018-08-07 08:09 | Diagnostic Imaging Report ---
CT abdomen and pelvis without intravenous contrast Indication: Abdominal pain Comparison: None, Technique: Axial images were obtained from the lung bases to the bilateral proximal femurs without IV contrast. Coronal reconstructions were made. total DLP: [id number], CTDI8.7 FINDINGS: Hypoventilatory and atelectatic changes of the lung bases are noted. There is a 5 mm nodule of the left lung base (image 5, series 5). Assessment of the solid organs is limited due to lack of IV contrast. No evidence of focal hepatic or splenic lesions. No focal pancreatic or adrenal lesions. No evidence of hydronephrosis or nephrolithiasis. Markedly distended urinary bladder is noted. Copious stool is seen throughout the colon with gas-filled loops of bowel noted. There appears to be a punctate appendicolith however the appendix is not appear enlarged. Air is seen within the appendix without surrounding inflammatory changes. Multiple fluid-filled loops of small bowel are also noted. There is also haziness and inflammatory changes in the mesentery with multiple prominent mesenteric lymph nodes measuring up to 1.2 cm (image 39, series 2). No free fluid or free air. The osseous structures demonstrate no acute abnormalities. IMPRESSION: Multiple fluid-filled loops of small bowel noted. There are also inflammatory changes of the mesentery with multiple prominent mesenteric lymph nodes. Findings are probably due to underlying infectious/inflammatory process and mesenteritis and enteritis. Low-grade obstructive process is less likely clinical correlation and follow-up is recommended to ensure resolution including ensure decrease in size of the lymph nodes and rule out less likely neoplastic process. Copious stool throughout the colon.. Punctate appendicolith noted. No evidence of acute appendicitis. No free fluid or free air. Markedly distended urinary bladder. 5 mm left lower lobe nodule nonspecific and may be due to prior infectious or inflammatory process. Neoplastic processes less likely. Please correlate with old exams, if available. Alternatively, repeat CT examination of 4-6 months is recommended to ensure long-term stability.
== END 2018-08-07 07:15 | disposition still patient (30) ==
LOC: ER 23:13
DX: F15.10 Other stimulant abuse, uncomplicated (principal); R73.9 Hyperglycemia, unspecified; R10.9 Unspecified abdominal pain; F17.200 Nicotine dependence, unspecified, uncomplicated
CPT/HCPCS: 36415-UA; 80053-TC; 80307; 81001-TC; 82150-TC; 83690-TC; 85025-TC; 85610-TC; 96374; J2405; J7030; Z7610

== ENCOUNTER 2018-10-14 22:53 | Emergency (ER) | payer MEDICAID ==
[2018-10-14] MEDS ORDERED: Tetracaine 0.5% Ophth Soln 15 mL Soln EACH EYE ONE (23:13)
--- NOTE | 2018-10-14 23:18 | ED Physician Chart ---
ED Chief Complaint/HPI - Patient Information Date Seen:: 10/14/18 Time Seen:: 23:14 Chief Complaint:: rt eye pain History of Present Illness:: 37 yr old male with rt eye scratch wants tetracaine drops Allergies:: Allergies Allergy/AdvReac Type Severity Reaction Status Date / Time No Known Allergies Allergy Verified 10/14/18 23:02 Vitals:: Vital Signs - 8 hr 10/14/18 22:55 Temp 98.1 F HR 90 RR 18 BP 129/74 O2 Sat % 99 ED Review of Systems - Review of Systems General/Constitutional: No fever, No chills, No weight loss, No weakness, No diaphoresis, No edema, No loss of appetite Skin: No skin lesions, No rash, No bruising Head: No headache, No light-headedness Eyes: Other (rt eye irritation watering and reddness) ENT: No earache, No nasal drainage, No sore throat, No tinnitus Neck: No neck pain, No swelling, No thyromegaly, No stiffness, No mass noted Cardio Vascular: No chest pain, No palpitations, No PND, No orthopnea, No edema Pulmonary: No SOB, No cough, No sputum, No wheezing GI: No nausea, No vomiting, No diarrhea, No pain, No melena, No hematochezia, No constipation, No hematemesis G/U: No dysuria, No frequency, No hematuria Musculoskeletal: No bone or joint pain, No back pain, No muscle pain Endocrine: No polyuria, No polydipsia Psychiatric: No prior psych history, No depression, No anxiety, No suicidal ideation Hematopoietic: No bruising, No lymphadenopathy Allergic/Immuno: No urticaria, No angioedema Neurological: No syncope, No focal symptoms, No weakness, No paresthesia, No headache, No seizure, No dizziness, No confusion, No vertigo ED Past Medical History - Past Medical History Past Medical History: No significant medical hx Family Medical History - Family Member Mother History Unknown: Yes Ethnicity: Non- Living Status: Still Living Hx Family Cancer: No Hx Family Coronary Artery Disease: No Hx Family Congestive Heart Failure: No Hx Family Hypertension: No Hx Family Stroke: No Hx Family Diabetes: No Hx Family Seizures: No Hx Family Dementia: No Hx Family AIDS: No Hx Family HIV: No Hx Family COPD: No Hx Family Hepatitis: No Hx Family Psychiatric Problems: No Hx Family Tuberculosis: No ED Physical Exam - Physical Examination General/Constitutional: Awake, Well-developed, well-nourished, Alert, No distress, GCS 15, Non-toxic appearing, Ambulatory Head: Atraumatic Eyes: Lids, conjuctiva normal, PERRL, EOMI Other Eyes comments:: rt eye reddness tearing Skin: Nl inspection, No rash, No skin lesions, No ecchymosis, Well hydrated, No lymphadenopathy ENMT: External ears, nose nl, Nasal exam nl, Lips, teeth, gums nl Neck: Nontender, Full ROM w/o pain, No JVD, No nuchal rigidity, No bruit, No mass, No stridor Respiratory: Nl effort/Exclusion, Clear to Auscultation, No Wheeze/Rhonchi/Rales Cardio Vascular: RRR, No murmur, gallop, rubs, NL S1 S2 GI: No tenderness/rebounding/guarding, No organomegaly, No hernia, Normal BS's, Nondistended, No mass/bruits, No McBurney tenderness : No CVA tenderness Extremities: No tenderness or effusion, Full ROM, normal strength in all extremities, No edema, Normal digits & nails Neuro/Psych: Alert/oriented, DTR's symmetric, Normal sensory exam, Normal motor strength, Judgement/insight normal, Mood normal, Normal gait, No focal deficits Misc: Normal back, No paraspinal tenderness ED Assessment - Assessment General Assessment: rt eye corneal abrasion ED Septic Shock - . Is Septic Shock (SBP<90, OR Lactate>4 mmol\L) present?: No - <6hrs of presentation: Vital Signs: Vital Signs - 8 hr 10/14/18 22:55 Temp 98.1 F HR 90 RR 18 BP 129/74 O2 Sat % 99 ED Reassessment (Disposition) - Reassessment Reassessment:: rt eye corneal abrasion - Diagnosis Diagnosis:: as above - Aftercare/Follow up Instructions Medication Prescribed:: erythromycin eye oint - Patient Disposition Discharge/Transfer:: Home Condition at Disposition:: Stable
[2018-10-14] MEDS ORDERED: TETRACAINE HCL 0.5% OPHTH SOLN 4ML BOTTLE ONE (23:19)
== END 2018-10-14 23:38 | disposition home or self-care (01) ==
LOC: ER 22:53
DX: S05.01XA Injury of conjunctiva and corneal abrasion without foreign body, right eye, initial encounter (principal); X58.XXXA Exposure to other specified factors, initial encounter; Y93.89 Activity, other specified; Y92.89 Other specified places as the place of occurrence of the external cause; Y99.8 Other external cause status
CPT/HCPCS: Z7502